=== PATIENT | female | born 2000 | race Caucasian/White ===

== ENCOUNTER 2020-07-11 08:45 | Outpatient (CLI) | payer OTHER, SELFPAY | END 2020-07-11 08:46 | disposition home or self-care (01) | LOC: ANHCOVIDVC 08:45 | DX: Z23 Encounter for immunization (principal) | CPT/HCPCS: 0001A; 91300 ==

== ENCOUNTER 2020-08-01 08:42 | Outpatient (CLI) | payer OTHER, SELFPAY | END 2020-08-01 08:43 | LOC: ANHCOVIDVC 08:42 | DX: Z23 Encounter for immunization (principal) | CPT/HCPCS: 0002A; 91300 ==

== ENCOUNTER 2020-11-21 09:17 | Outpatient (CLI) | payer OTHER, SELFPAY ==
[2020-11-21 10:16] LABS: Basophils Percent Auto 0.4 % (0.2-1.2); Eosinophils Absolute Auto 0.1 K/mm3 (0-0.3); Eosinophils Percent Auto 1.2 % (0-4.4); Hematocrit 40.5 % (37.0-47.0); Hemoglobin 13.4 g/dL (12.0-15.0); Immature Granulocyte Absolute 0.01 K/mm3 (0.00-0.031); Immature Granulocyte Percent A 0.2 % (0-0.5); Lymphocytes Absolute Auto 1.73 K/mm3 (0.9-3.2); Lymphocytes Percent Auto 33.3 % (18.3-44.2); Mean Corpuscular HGB Conc 33.1 g/dl (32-36); Mean Corpuscular Hemoglobin 30.5 pg (26-34); Mean Corpuscular Volume 92.3 fl (80-100); Mean Platelet Volume 10.1 fl (7.4-10.4); Monocytes Absolute Auto 0.5 K/mm3 (0.1-0.6); Neutrophils Absolute Auto 2.9 K/mm3 (1.3-6.7); Neutrophils Percent Auto 54.9 % (45.5-73.1); Platelet Count Result 296 k/mm3 (150-375); Red Blood Count 4.39 M/mm3 (4.2-5.4); White Blood Count 5.2 K/mm3 (4.5-10.0)
[2020-11-21 10:28] LABS: Hemoglobin A1C 4.9 % (<5.7)
[2020-11-21 10:33] LABS: Alanine Aminotransferase 16 U/L (4-35); Albumin Level 4.5 g/dL (3.5-5.1); Alkaline Phosphatase 49 U/L (38-126); Anion Gap 9 mmol/L (8-16); Aspartate Amino Transferase 22 U/L (14-36); Bilirubin,Total 1.1 mg/dL (0.2-1.3); Blood Urea Nitrogen 11 mg/dL (7-17); Calcium 9.5 mg/dL (8.4-10.2); Carbon Dioxide 23 mmol/L (22-30); Chloride 106 mmol/L (98-107); Cholesterol 169 mg/dL (0-200); Estimated Glomerular Filt Rate > 60; Glucose 82 mg/dL (65-110); HDL Direct 47 mg/dL; Potassium 4.1 mmol/L (3.4-5.0); Sodium 138 mmol/L (137-145); Triglycerides 62 mg/dL (<150)
[2020-11-21 10:45] LABS: LDL Cholesterol Direct 82 mg/dL
[2020-11-21 11:00] LABS: Thyroid Stimulating Hormone 0.697 uIU/mL (0.465-4.680)
== END 2020-11-21 09:18 | disposition home or self-care (01) ==
PROVIDERS: PCP Family Medicine; Visit Provider Family Medicine
DX: E88.81 Metabolic syndrome and other insulin resistance (principal)
CPT/HCPCS: 36415; 80053; 80061; 83036; 84443; 85025

== ENCOUNTER 2021-12-24 08:11 | Outpatient (CLI) | payer OTHER, SELFPAY ==
[2021-12-24 08:42] LABS: Anion Gap 12 mmol/L (8-16); Blood Urea Nitrogen 13 mg/dL (7-17); Calcium 9.3 mg/dL (8.4-10.2); Carbon Dioxide 26 mmol/L (22-30); Chloride 104 mmol/L (98-107); Estimated Glomerular Filt Rate > 60; Glucose 97 mg/dL (65-110); Sodium 142 mmol/L (137-145)
[2021-12-24 08:58] LABS: Hemoglobin A1C 4.7 % (<5.7)
[2021-12-24 09:11] LABS: Thyroid Stimulating Hormone 0.858 uIU/mL (0.465-4.680)
== END 2021-12-24 08:12 | disposition home or self-care (01) ==
LOC: ANHLAB 08:14
PROVIDERS: PCP Family Medicine; Visit Provider Family Medicine
DX: F90.9 Attention-deficit hyperactivity disorder, unspecified type (principal); E28.2 Polycystic ovarian syndrome; E07.9 Disorder of thyroid, unspecified
CPT/HCPCS: 36415; 80048; 83036; 84443

== ENCOUNTER 2022-07-23 08:46 | Outpatient (CLI) | payer OTHER, SELFPAY ==
[2022-07-23 09:06] LABS: Basophils Percent Auto 0.5 % (0.2-1.2); Eosinophils Absolute Auto 0.1 K/mm3 (0-0.3); Eosinophils Percent Auto 0.8 % (0-4.4); Hematocrit 38.6 % (37.0-47.0); Hemoglobin 13.1 g/dL (12.0-15.0); Immature Granulocyte Absolute 0.02 K/mm3 (0.00-0.031); Immature Granulocyte Percent A 0.2 % (0-0.5); Lymphocytes Absolute Auto 2.92 K/mm3 (0.9-3.2); Lymphocytes Percent Auto 33.8 % (18.3-44.2); Mean Corpuscular HGB Conc 33.9 g/dl (32-36); Mean Corpuscular Hemoglobin 30.2 pg (26-34); Mean Corpuscular Volume 88.9 fl (80-100); Mean Platelet Volume 9.5 fl (7.4-10.4); Monocytes Absolute Auto 0.8 K/mm3 (0.1-0.6); Monocytes Percent Auto 8.8 % (2.6-8.5); Neutrophils Absolute Auto 4.8 K/mm3 (1.3-6.7); Neutrophils Percent Auto 55.9 % (45.5-73.1); Platelet Count Result 345 k/mm3 (150-375); Red Blood Count 4.34 M/mm3 (4.2-5.4); Red Cell Distribution Width 12.1 % (11.5-14.5); White Blood Count 8.7 K/mm3 (4.5-10.0)
[2022-07-23 09:19] LABS: Hemoglobin A1C 4.7 % (<5.7)
[2022-07-23 09:23] LABS: Alanine Aminotransferase 24 U/L (6-35); Albumin Level 4.7 g/dL (3.5-5.1); Alkaline Phosphatase 54 U/L (38-126); Anion Gap 9 mmol/L (8-16); Aspartate Amino Transferase 23 U/L (14-36); Bilirubin,Total 0.6 mg/dL (0.2-1.3); Blood Urea Nitrogen 15 mg/dL (7-17); Calcium 9.3 mg/dL (8.4-10.2); Carbon Dioxide 26 mmol/L (22-30); Chloride 102 mmol/L (98-107); Estimated Glomerular Filt Rate > 60; Glucose 89 mg/dL (65-110); Potassium 3.4 mmol/L (3.4-5.0); Sodium 137 mmol/L (137-145)
[2022-07-23 09:39] LABS: Free T4 Free Thyroxine 1.24 ng/mL (0.78-2.19)
== END 2022-07-23 08:47 | disposition home or self-care (01) ==
LOC: ANHLAB 08:47
PROVIDERS: PCP Family Medicine; Visit Provider Nurse Practitioner Gerontology
DX: E07.9 Disorder of thyroid, unspecified (principal); E28.2 Polycystic ovarian syndrome; F90.9 Attention-deficit hyperactivity disorder, unspecified type; E66.9 Obesity, unspecified
CPT/HCPCS: 36415; 80053; 83036; 84439; 84443; 84480; 85025

== ENCOUNTER 2022-08-07 09:32 | Outpatient (CLI) | payer OTHER, SELFPAY ==
--- NOTE | ~2022-08-07 | US_ITS ---
EXAMINATION: US pelvic complete w TV DATE: 08/07/2022 10:07 INDICATION: Polycystic ovarian syndrome Comparison:No prior studies for comparison. TECHNIQUE: Multiple transabdominal and endovaginal sonographic images of the pelvis performed. FINDINGS: The uterus measures 8.7 x 8.1 x 3.8 cm. The endometrial complex measures 3.3 mm. The right ovary measures 4.2 x 2.1 x 2.4 cm and the left ovary measures 3.1 x 2 x 2.2 cm. There are small follicles in each ovary. Normal doppler signal in both ovaries. There is trace free fluid in the pelvis. There are no abnormal masses seen on either side. IMPRESSION: 1. Unremarkable pelvic ultrasound Reviewed, dictated and finalized at location L.
== END 2022-08-07 09:33 | disposition home or self-care (01) ==
PROVIDERS: PCP Family Medicine; Visit Provider Nurse Practitioner Gerontology
DX: E07.9 Disorder of thyroid, unspecified (principal); E28.2 Polycystic ovarian syndrome; E66.9 Obesity, unspecified; F90.9 Attention-deficit hyperactivity disorder, unspecified type
CPT/HCPCS: 76830; 76856

== ENCOUNTER 2022-10-05 15:33 | Emergency (ER) | payer OTHER, SELFPAY ==
[2022-10-05 15:50] VITALS: BP 125/76; PULSE 87; RESP 18; TEMP 36.6; O2SAT 100
--- NOTE | 2022-10-05 16:22 | ED.GENADULT ---
HPI - General Adult General Chief complaint: Upper Respiratory Infection Stated complaint: sorethroat Time Seen by Provider: 10/05/22 16:23 Source: patient Mode of arrival: ambulatory Limitations: no limitations History of Present Illness HPI narrative: 22-year-old female patient presents to the [facility] with complaints of sore throat for the past 5 days. Patient denies any other sick symptoms including no fever, body aches or chills. Denies any cough. Denies any chest pain, shortness of breath, headaches, abdominal pain, nausea, vomiting or diarrhea. Patient states she has tried [id number] Mucinex for her symptoms which she does not feel like it are helping. Related Data Allergies Allergy/AdvReac Type Severity Reaction Status Date / Time amoxicillin [From Augmentin] Allergy Unknown Unknown Verified 10/05/22 16:09 clavulanic acid Allergy Unknown Unknown Verified 10/05/22 16:09 [From Augmentin] Review of Systems Review of Systems: CONSTITUTIONAL: Denies fever, chills, or sweats. EYES: Denies visual changes, redness, or discharge. ENT: Denies rhinorrhea, congestion, Positive sore throat, or otalgia. CARDIOVASCULAR: Denies chest pain, palpitations, or edema. RESPIRATORY: Denies cough or dyspnea. GASTROINTESTINAL: Denies abdominal pain, nausea, vomiting, or diarrhea. GENITOURINARY: Denies dysuria or hematuria. SKIN: Denies rash or itching. MUSCULOSKELETAL: Denies back pain, joint pain, or myalgia. NEUROLOGIC: Denies headache, numbness, or weakness. PSYCHIATRIC: Denies anxiety or depression. FOR[facility]LY [facility] Past Medical History Medical History Acid reflux ADHD Anxiety Constipation Depression PCOS (polycystic ovarian syndrome) Surgical History Surgical History History of appendectomy 2009 [place] teeth extracted 2018 Family History Family History Mother Hypertension ADHD Grandparent Carcinoma of colon Rectal cancer Dx age 68 Grandparent Diabetes mellitus Hypertension Hypercholesteremia Father Hypertension Hypercholesteremia Social History Social History Social History: Single Smoking status: Never smoker Tobacco type: cigarettes and e-cigarettes/vaping Second hand tobacco smoke exposure: No Additional smoking assessment comments: Mainly when drinking Alcohol intake: current Drinks per week: 3 Substance use: former Substance use type: marijuana Last use: 2020 Lack of Transportation: No Lack of Food: Never True Current Housing: I Have Housing Concerned About Future Housing: No Difficulty Paying Gas/Electric Bills: No Difficulty Paying for Meds: No Currently Unemployed: No Education: Decline to Answer Difficulty w/ Childcare or Family Care: No Living arrangements: with family Occupation/Education: occupation Gender identity (if verbalized by the patient): Female Sexual Orientation (if Verbalized by the Patient): Straight or Heterosexual Comments At the time of my signature I agree with nursing past medical history, surgical, social, and family history. There is no relevant family history pertinent to the presenting complaint. Exam Narrative: GENERAL: Well-appearing, well-nourished, and in no acute distress. HEAD: Normocephalic, atraumatic. EYES: PERRLA and EOMI. ENT: Nares clear, no rhinorrhea or epistaxis. Mucous membranes moist. posterior pharynx with erythema, no tonsillar enlargement, no exudates or lesions present. Bilateral TMs are clear no erythema or foreign bodies the canal. NECK: Supple. No lymphadenopathy CHEST: Clear to auscultation. No respiratory distress. HEART: Regular rate and rhythm. No murmur heard. Normal peripheral pulses. ABDOMEN: Soft, nontender, nondistended, normal active bowel sounds.
== END 2022-10-05 16:33 | disposition home or self-care (01) ==
PROVIDERS: Emergency Provider Nurse Practitioner Family; PCP Family Medicine
DX: J02.9 Acute pharyngitis, unspecified (principal); F17.290 Nicotine dependence, other tobacco product, uncomplicated; K21.9 Gastro-esophageal reflux disease without esophagitis; E28.2 Polycystic ovarian syndrome; F90.9 Attention-deficit hyperactivity disorder, unspecified type
CPT/HCPCS: 87081; 87880; 99213; G0463

== ENCOUNTER 2022-12-10 08:17 | Outpatient (CLI) | payer OTHER, SELFPAY ==
[2022-12-10 10:27] LABS: Free T4 Free Thyroxine 1.29 ng/mL (0.78-2.19)
[2022-12-13 04:45] LABS: Thyroid Peroxidase Antibodies <1 IU/mL (<9)
== END 2022-12-10 08:18 | disposition home or self-care (01) ==
LOC: ANHLAB 08:20
PROVIDERS: PCP Family Medicine; Visit Provider Family Medicine
DX: E07.9 Disorder of thyroid, unspecified (principal); E03.9 Hypothyroidism, unspecified
CPT/HCPCS: 36415; 84439; 84443; 84480; 86376

== ENCOUNTER 2023-12-24 07:34 | Outpatient (CLI) | payer OTHER, SELFPAY ==
[2023-12-24 08:14] LABS: Basophils Percent Auto 0.5 % (0.2-1.2); Eosinophils Absolute Auto 0.1 K/mm3 (0-0.3); Eosinophils Percent Auto 1.8 % (0-4.4); Hematocrit 40.3 % (37.0-47.0); Hemoglobin 13.4 g/dL (12.0-15.0); Immature Granulocyte Absolute 0.01 K/mm3 (0.00-0.031); Immature Granulocyte Percent A 0.2 % (0-0.5); Lymphocytes Percent Auto 33.8 % (18.3-44.2); Mean Corpuscular HGB Conc 33.3 g/dl (32-36); Mean Corpuscular Hemoglobin 29.6 pg (26-34); Mean Platelet Volume 10.3 fl (7.4-10.4); Monocytes Absolute Auto 0.5 K/mm3 (0.1-0.6); Monocytes Percent Auto 9.6 % (2.6-8.5); Neutrophils Percent Auto 54.1 % (45.5-73.1); Platelet Count Result 345 k/mm3 (150-375); Red Blood Count 4.53 M/mm3 (4.2-5.4); Red Cell Distribution Width 12.3 % (11.5-14.5); White Blood Count 5.6 K/mm3 (4.5-10.0)
[2023-12-24 08:15] LABS: Alanine Aminotransferase 21 U/L (6-35); Albumin Level 4.5 g/dL (3.5-5.1); Alkaline Phosphatase 48 U/L (38-126); Anion Gap 7 mmol/L (4-12); Aspartate Amino Transferase 22 U/L (14-36); Bilirubin,Total 0.5 mg/dL (0.2-1.3); Blood Urea Nitrogen 13 mg/dL (7-17); Calcium 9.3 mg/dL (8.4-10.2); Carbon Dioxide 25 mmol/L (22-30); Chloride 106 mmol/L (98-107); Cholesterol 194 mg/dL (0-200); Estimated Glomerular Filt Rate > 60; Glucose 91 mg/dL (65-110); HDL Direct 50 mg/dL; Sodium 138 mmol/L (137-145); Triglycerides 81 mg/dL (<150)
[2023-12-24 08:26] LABS: LDL Cholesterol Direct 107 mg/dL
[2023-12-24 09:05] LABS: Vitamin B12 > 1000.0 pg/mL (239-931)
[2023-12-24 09:16] LABS: Free T4 Free Thyroxine 1.16 ng/mL (0.78-2.19)
[2023-12-25 12:08] LABS: DHEA-Sulfate 301 mcg/dL (14-349); Progesterone 6.5 ng/mL; Sex Hormone Binding Globulin 20 nmol/L (17-124)
[2023-12-28 14:24] LABS: Testosterone Total 28 ng/dL (2-45)
[2023-12-28 15:44] LABS: Thyroid Peroxidase Antibodies <1 IU/mL (<9)
[2023-12-29 12:39] LABS: Vitamin D 1,25 (OH)2 Total 35 pg/mL (18-72); Vitamin D2 1,25 (OH)2 <8 pg/mL; Vitamin D3 1,25 (OH)2 35 pg/mL
[2024-01-01 05:04] LABS: Estradiol, Ultrasensitive 130 pg/mL
== END 2023-12-24 07:35 | disposition home or self-care (01) ==
PROVIDERS: PCP Student in an Organized Health Care Education/Training Program; Visit Provider Student in an Organized Health Care Education/Training Program
DX: F32.A Depression, unspecified (principal); E07.9 Disorder of thyroid, unspecified; E28.2 Polycystic ovarian syndrome; R63.5 Abnormal weight gain; E88.810 Metabolic syndrome; E88.818 Other insulin resistance
CPT/HCPCS: 36415; 80053; 80061; 82607; 82627; 82652; 82670; 84144; 84270; 84403; 84439; 84443; 85025; 86376